=== PATIENT | female | born 1945 | race Caucasian/White ===

== ENCOUNTER → 2016-05-30 | Outpatient (CLI) | payer OTHER ==
--- NOTE | 2016-05-30 17:12 | DX ---
Paranasal Sinuses (Four Views) Clinical Indications: Chronic sinus symptoms in a 70-year-old female; no previous studies are availa ble for comparison. Findings: The sinuses are normally developed and well aerated. No masses and no fluid levels are se en. The nasal septum is midline. Osseous structures are intact. Impression: The paranasal sinuses are clear.
== END ==
LOC: BMCIMAGING 15:56
PROVIDERS: ATTEND Internal Medicine
DX: J34.89 Other specified disorders of nose and nasal sinuses (principal)